=== PATIENT | male | born 1950 | race Caucasian/White ===

== ENCOUNTER 2018-02-26 09:23 | Day surgery (SDC) | payer OTHER ==
[~2018-02-26 09:23] MED LIST: Metoclopramide 10 MG/2 ML SDV IV PRN; Sodium Chloride 0.9% 1,000 ML IV SCH; Sodium Chloride 0.9% 10 ML Syringe FLUSH PRN
[2018-02-26] MEDS ORDERED: Atropine 0.4 MG/ML SDV ONE (14:00)
[2018-02-26] MEDS ORDERED: Midazolam 1 MG/ML 5 ML SDV ONE (14:00)
[2018-02-26] MEDS ORDERED: Propofol 1,000 MG/100 ML SDV ONE (14:00)
[2018-02-26 14:33] VITALS: BP 133/79
--- NOTE | 2018-02-26 18:21 | OR ---
DATE OF OPERATION: 02/26/2018 PREOPERATIVE DIAGNOSIS: Personal history of colon polyps. POSTOPERATIVE DIAGNOSIS: Personal history of colon polyps. PROCEDURE: Colonoscopy. ANESTHESIA: MAC. ESTIMATED BLOOD LOSS: None. COMPLICATIONS: None. INDICATION FOR THE PROCEDURE: The patient is a 67-year-old male, who has previous history of colon polyps. Last colonoscopy was 5 years ago. Denies any change in bowel habits since that time. The patient is here today for surveillance colonoscopy. DESCRIPTION OF PROCEDURE: Informed consent was obtained from the patient. The patient was taken to the operating room, placed on table in left lateral decubitus position. Monitored anesthesia care was administered. Digital rectal exam was normal. Colonoscope was then advanced through the anus and directed toward the cecum. Cecum was identified by appendiceal orifice and ileocecal valve. Colonoscope was then slowly withdrawn. No masses. No polyps. No areas of ischemia or inflammation were identified. The patient did have just a few small diverticula in the sigmoid colon. Colonoscopy was otherwise unremarkable. Retroflexion was performed in the rectum, which was also unremarkable. Colonoscope was then removed. FINDINGS: Sigmoid diverticula. RECOMMENDATIONS: Due to his personal history of polyps, would recommend repeat screening colonoscopy in 5 years. TETE/JAMMIE /[id number]
== END 2018-02-26 15:20 | disposition home or self-care (01) ==
LOC: LB.SDS 09:23
PROVIDERS: ATTEND Surgery
DX: Z12.11 Encounter for screening for malignant neoplasm of colon (principal); K57.30 Diverticulosis of large intestine without perforation or abscess without bleeding; I10 Essential (primary) hypertension; E78.5 Hyperlipidemia, unspecified; Z86.010 Personal history of colon polyps; Z88.5 Allergy status to narcotic agent
CPT/HCPCS: J0461; J2250; J3490; J7040

== ENCOUNTER → 2019-09-23 | Outpatient (CLI) | payer MEDICARE, OTHER ==
--- NOTE | 2019-09-24 09:09 | US ---
Date of Service: 09/23/19 Clinical Data: Encounter for screening for cardiovascular disorders ABDOMINAL AORTIC ULTRASOUND: The exam is suboptimal with suboptimal visualization of the abdominal aorta. The aorta does taper normally. Its maximum diameter is 2.3 cm. IMPRESSION: No evidence of aortic aneurysm. [id number] [facility]
== END ==
LOC: LB.US 10:45
PROVIDERS: ATTEND Family Medicine
DX: Z13.6 Encounter for screening for cardiovascular disorders (principal)
CPT/HCPCS: 76706

== ENCOUNTER 2023-10-02 09:37 | Day surgery (SDC) | payer MEDICARE ==
[~2023-10-02 09:37] MED LIST changes: -Sodium Chloride 0.9% 10 ML Syringe FLUSH PRN
[2023-10-02] MEDS ORDERED: Propofol 200 MG/20 ML SDV ONE (11:50)
[2023-10-02 12:42] VITALS: BP 130/67; PULSE 66
== END 2023-10-02 13:18 | disposition home or self-care (01) ==
LOC: LB.SDS 09:37
PROVIDERS: ATTEND Surgery
DX: Z12.11 Encounter for screening for malignant neoplasm of colon (principal); D12.5 Benign neoplasm of sigmoid colon; D12.8 Benign neoplasm of rectum; K57.30 Diverticulosis of large intestine without perforation or abscess without bleeding; I10 Essential (primary) hypertension
CPT/HCPCS: 82947; 88305; J2704; J7030